=== PATIENT | female | born 1955 | race Caucasian/White ===

== ENCOUNTER 2017-01-12 07:00 | Inpatient (IN) | payer MEDICAID ==
[~2017-01-12] VITALS: Ht 157.5 cm; Wt 72.6 kg
[~2017-01-12 07:00] MED LIST: ATOR10TA PO; CYCL-259 PO; HYDR-3307 PO; LISI-167 PO; LOSA50TA6 PO
[2017-02-03] MEDS ORDERED: LEVO75TA5 PO (10:17)
[2017-02-03] MEDS ORDERED: ATOR20TA9 PO (10:17)
[2017-02-03] MEDS ORDERED: LOSA50TA6 PO (10:17)
[2017-02-03] MEDS ORDERED: RISP3TAB24 PO (10:17)
[2017-02-03] MEDS ORDERED: FLUT1AER INH (10:31)
[2017-02-03] MEDS ORDERED: ALBU18HF INH (10:31)
[2017-02-12] MEDS ORDERED: BACITRACIN 50,000 UNIT ONE (05:56)
[2017-02-12] MEDS ORDERED: BUPIVACAINE/PF-EPI 0.5% 1:200K ONE (05:56)
[2017-02-12] MEDS ORDERED: THROMBIN 5,000 UNIT VIAL TP ONE (05:56)
[2017-02-12] MEDS ORDERED: BUPIVACAINE 0.25% ONE (06:15)
[2017-02-12 06:16] VITALS: BP 118/83
[2017-02-12] MEDS ORDERED: LACTATED RINGERS 1,000 ML IV SCH (06:25)
[2017-02-12] MEDS ORDERED: LIDOCAINE 1%, 2ML ONE (06:27)
[2017-02-12] MEDS ORDERED: LIDOCAINE 1%, 2ML SQ PRN (06:30)
[2017-02-12] MEDS ORDERED: MIDAZOLAM 1 MG/ML, 2ML ONE (06:36)
[2017-02-12] MEDS ORDERED: FENTANYL PF 250 MCG/5ML ONE (06:36)
[2017-02-12] MEDS ORDERED: REMIFENTANIL 2 MG ONE (06:36)
[2017-02-12] MEDS ORDERED: SUCCINYLCHOLINE 20 MG/ML, 10ML ONE (07:14)
[2017-02-12] MEDS ORDERED: ROCURONIUM 10 MG/ML ONE (07:14)
[2017-02-12] MEDS ORDERED: CEFAZOLIN 1,000 MG ONE (07:14)
[2017-02-12] MEDS ORDERED: GLYCOPYRROLATE 0.2MG/1ML ONE (07:14)
[2017-02-12] MEDS ORDERED: PROPOFOL 10 MG/ML, 20ML ONE (07:14)
[2017-02-12] MEDS ORDERED: PROPOFOL 10 MG/ML, 50ML ONE (07:14)
[2017-02-12] MEDS ORDERED: ONDANSETRON 2MG/ML, 2ML ONE (07:14)
[2017-02-12] MEDS ORDERED: DEXAMETHASONE 4 MG/ML, 1ML ONE (07:14)
[2017-02-12] MEDS ORDERED: EPHEDRINE 50 MG/ML, 1ML ONE ×2 (07:14→10:40)
[2017-02-12] MEDS ORDERED: MEPERIDINE/PF 25MG/0.5ML IVPush PRN (08:30)
[2017-02-12] MEDS ORDERED: PROMETHAZINE 25 MG/ML, 1ML IV PRN (08:30)
[2017-02-12] MEDS ORDERED: LABETALOL 5MG/ML, 20ML IV PRN (08:30)
[2017-02-12] MEDS ORDERED: ONDANSETRON 2MG/ML, 2ML IVPush PRN (08:30)
[2017-02-12] MEDS ORDERED: METOPROLOL 1 MG/ML, 5ML IV PRN (08:30)
[2017-02-12] MEDS ORDERED: HYDROmorphone 1 MG/ML, 1ML IV PRN (08:30)
[2017-02-12] MEDS ORDERED: ACETAMINOPHEN 325 MG TABLET PO PRN (08:30)
[2017-02-12] MEDS ORDERED: OXYcodone 5 MG/5 ML ORAL.SOL UDC PO PRN (08:30)
[2017-02-12] MEDS ORDERED: MIDAZOLAM 1 MG/ML, 2ML IV PRN (08:30)
[2017-02-12] MEDS ORDERED: ALBUTEROL SULFATE 2.5 MG/3 ML NPPB PRN (08:30)
[2017-02-12] MEDS ORDERED: hydrALAzine 20 MG/ML, 1ML IV PRN (08:30)
[2017-02-12] MEDS ORDERED: FENTANYL PF 100 MCG/2ML ONE ×2 (09:46→11:13)
[2017-02-12] MEDS ORDERED: BUPIVACAINE 0.25% INJ ONE (10:07)
[2017-02-12] MEDS ORDERED: FENTANYL PF 100 MCG/2ML EPIDPUSH ONE (10:07)
[2017-02-12] MEDS ORDERED: PROMETHAZINE 25 MG/ML, 1ML IM PRN (10:30)
[2017-02-12] MEDS ORDERED: PHARMACY MAY ADJ FOR RENAL FX MC PRN (10:30)
[2017-02-12] MEDS ORDERED: METHOCARBAMOL 750 MG TABLET PO PRN (10:30)
[2017-02-12] MEDS ORDERED: CYCLOBENZAPRINE 10 MG TABLET PO PRN (10:30)
[2017-02-12] MEDS ORDERED: morphine SULFATE 10 MG/ML, 1ML IVPush PRN (10:30)
[2017-02-12] MEDS ORDERED: HYDROcodone/APAP 5/325 TABLET PO PRN (10:30)
[2017-02-12] MEDS ORDERED: BISACODYL 10 MG SUPP PR PRN (10:30)
[2017-02-12] MEDS ORDERED: SENNA/DOCUSATE TABLET PO PRN (10:30)
[2017-02-12] MEDS ORDERED: HYDROcodone/APAP 10/325 MG TABLET PO PRN (10:30)
[2017-02-12] MEDS ORDERED: DIPHENHYDRAMINE 50 MG/ML, 1ML IVPush PRN (10:30)
[2017-02-12] MEDS: EPHEDRINE 50 MG/ML, 1ML IVPush PRN ×2 (10:35→10:50)
[2017-02-12] MEDS ORDERED: ACETAMINOPHEN 650 MG/20.3 ML UDC ONE (11:13)
[2017-02-12] MEDS ORDERED: OXYcodone 5 MG/5 ML ORAL.SOL UDC ONE (11:14)
[2017-02-12] MEDS: FENTANYL PF 100 MCG/2ML IV PRN ×4 (11:16→11:56)
[2017-02-12 13:05] VITALS: BP 96/55
[2017-02-12] MEDS ORDERED: ALBUTEROL SULFATE 2.5 MG/3 ML HHN PRN (13:30)
[2017-02-12] MEDS: CEFAZOLIN PMX 1GM/50ML 50 ML IVPB SCH ×2 (14:00→22:27)
[2017-02-12] MEDS: D5%-0.9% NACL+KCL 20MEQ 1,000 ML IV SCH (14:38)
[2017-02-12] MEDS: ONDANSETRON 2MG/ML, 2ML IVPush PRN (16:44)
[2017-02-12] MEDS: OXYcodone/APAP 5/325MG TABLET PO PRN ×2 (16:44→20:50)
[2017-02-12 19:29] VITALS: BP 104/63
[2017-02-12] MEDS: ATORVASTATIN 20 MG TABLET PO SCH (20:38)
[2017-02-12] MEDS: RISPERIDONE 1 MG TABLET PO SCH (20:39)
[2017-02-12] MEDS: SODIUM CHLORIDE FLUSH 10ML SYR IVF SCH (20:40)
[2017-02-12 23:57] VITALS: BP 99/62
[2017-02-13] MEDS: D5%-0.9% NACL+KCL 20MEQ 1,000 ML IV SCH ×3 (00:21→17:29)
[2017-02-13] MEDS: OXYcodone/APAP 5/325MG TABLET PO PRN ×5 (01:01→20:24)
[2017-02-13 02:40] VITALS: BP 89/63
[2017-02-13 08:33] VITALS: BP 92/53
[2017-02-13] MEDS: FLUTICASONE/VILANTEROL 100-25MCG/INH INH SCH (09:00)
[2017-02-13] MEDS: RISPERIDONE 1 MG TABLET PO SCH ×2 (09:12→21:22)
[2017-02-13] MEDS: SODIUM CHLORIDE FLUSH 10ML SYR IVF SCH ×2 (09:12→21:00)
[2017-02-13] MEDS: LOSARTAN 50MG TABLET PO SCH (09:12)
[2017-02-13] MEDS: LEVOTHYROXINE 75 MCG TABLET PO SCH (09:12)
[2017-02-13 12:34] VITALS: BP 103/63
[2017-02-13] MEDS: ONDANSETRON 2MG/ML, 2ML IVPush PRN (17:31)
[2017-02-13 20:46] VITALS: BP 101/68
[2017-02-13] MEDS: ATORVASTATIN 20 MG TABLET PO SCH (21:21)
[2017-02-14] MEDS: OXYcodone/APAP 5/325MG TABLET PO PRN (01:08)
[2017-02-14] MEDS: ONDANSETRON 2MG/ML, 2ML IVPush PRN (01:13)
[2017-02-14 02:49] VITALS: BP 90/60
[2017-02-14] MEDS: D5%-0.9% NACL+KCL 20MEQ 1,000 ML IV SCH ×2 (03:05→17:06)
[2017-02-14 06:15] LABS: BLOOD UREA NITROGEN 16 mg/dL (7-18)
[2017-02-14 06:18] LABS: ASPARTATE AMINO TRANSFERASE 11 U/L (15-37)
[2017-02-14 06:59] VITALS: BP 99/53
[2017-02-14] MEDS: LOSARTAN 50MG TABLET PO SCH (08:32)
[2017-02-14] MEDS: FLUTICASONE/VILANTEROL 100-25MCG/INH INH SCH (08:32)
[2017-02-14] MEDS: LEVOTHYROXINE 75 MCG TABLET PO SCH (08:32)
[2017-02-14] MEDS: SODIUM CHLORIDE FLUSH 10ML SYR IVF SCH ×2 (08:32→21:00)
[2017-02-14] MEDS: RISPERIDONE 1 MG TABLET PO SCH ×2 (08:33→21:51)
[2017-02-14] MEDS ORDERED: ALBUTEROL SULFATE 2.5 MG/3 ML NPPB PRN (09:30)
[2017-02-14 13:21] VITALS: BP 103/74
[2017-02-14 20:14] VITALS: BP 129/69
[2017-02-14] MEDS: ATORVASTATIN 20 MG TABLET PO SCH (21:51)
[2017-02-15] MEDS: D5%-0.9% NACL+KCL 20MEQ 1,000 ML IV SCH ×2 (00:05→09:00)
[2017-02-15] MEDS: OXYcodone/APAP 5/325MG TABLET PO PRN ×4 (01:31→14:02)
[2017-02-15 04:40] VITALS: BP 126/66
[2017-02-15 09:00] VITALS: BP 121/73
[2017-02-15] MEDS: SODIUM CHLORIDE FLUSH 10ML SYR IVF SCH (09:00)
[2017-02-15] MEDS: FLUTICASONE/VILANTEROL 100-25MCG/INH INH SCH (09:00)
[2017-02-15] MEDS: LEVOTHYROXINE 75 MCG TABLET PO SCH (09:11)
[2017-02-15] MEDS: RISPERIDONE 1 MG TABLET PO SCH (09:12)
[2017-02-15] MEDS: LOSARTAN 50MG TABLET PO SCH (09:12)
[2017-02-15] MEDS ORDERED: OXYC-302 PO (11:35)
[2017-02-15] MEDS ORDERED: CYCL-259 PO (11:36)
[2017-02-15] MEDS ORDERED: DOCU-30 PO (11:42)
[2017-02-15 14:28] VITALS: BP 115/62
== END 2017-02-15 15:05 | DRG 460 ==
LOC: ORIP 02-12 05:26 → EDSTATUS 02-12 07:00 → 4NOR 02-12 12:45
PROVIDERS: ADMIT Neurological Surgery; ATTEND Neurological Surgery
PROC: 0SG0071 Fusion of Lumbar Vertebral Joint with Autologous Tissue Substitute, Posterior Approach, Posterior Column, Open Approach (ICD-10-PCS; 2017-02-12)
PROC: 0SB20ZZ Excision of Lumbar Vertebral Disc, Open Approach (ICD-10-PCS; 2017-02-12)
PROC: 01NB0ZZ Release Lumbar Nerve, Open Approach (ICD-10-PCS; 2017-02-12)
PROC: 4A11X4G Monitoring of Peripheral Nervous Electrical Activity, Intraoperative, External Approach (ICD-10-PCS; 2017-02-12)
PROC: 0SG00AJ Fusion of Lumbar Vertebral Joint with Interbody Fusion Device, Posterior Approach, Anterior Column, Open Approach (ICD-10-PCS; principal; 2017-02-12 07:00)
DX: M48.06 Spinal stenosis, lumbar region (principal); M43.16 Spondylolisthesis, lumbar region; M51.16 Intervertebral disc disorders with radiculopathy, lumbar region; G43.909 Migraine, unspecified, not intractable, without status migrainosus; F41.9 Anxiety disorder, unspecified; F32.9 Major depressive disorder, single episode, unspecified; G80.9 Cerebral palsy, unspecified; G89.29 Other chronic pain; E66.01 Morbid (severe) obesity due to excess calories; I10 Essential (primary) hypertension; J44.9 Chronic obstructive pulmonary disease, unspecified; E03.9 Hypothyroidism, unspecified; E11.9 Type 2 diabetes mellitus without complications; Z98.1 Arthrodesis status; Z68.29 Body mass index [BMI] 29.0-29.9, adult; Z82.0 Family history of epilepsy and other diseases of the nervous system; Z80.3 Family history of malignant neoplasm of breast; Z88.8 Allergy status to other drugs, medicaments and biological substances; Z79.899 Other long term (current) drug therapy
CPT/HCPCS: 36415; 72100; 80053; 85025; 86850; 86900; C1713; J0690; J1100; J2250; J2405; J2704; J3010; J3490; C1751; C1762; J0330; J3480; J7120

== ENCOUNTER → 2017-02-03 | Outpatient (CLI) | payer MEDICAID ==
[~2017-02-03] MED LIST changes: +ALBU18HF INH; +ATOR20TA9 PO; +FLUT1AER INH; +LEVO75TA5 PO; +RISP3TAB24 PO
[2017-02-03 11:13] LABS: HEMOGLOBIN 14.4 g/dL (11.7-16.4)
[2017-02-03 11:15] LABS: BLOOD UREA NITROGEN 12 mg/dL (7-18)
[2017-02-03 11:19] LABS: ASPARTATE AMINO TRANSFERASE 14 U/L (15-37)
[2017-02-03 12:55] LABS: PATH.CAST-FLAG NOT PRESENT; SPERM-FLAG NOT PRESENT; SRC-FLAG NOT PRESENT; XTAL-FLAG NOT PRESENT; YLC-FLAG NOT PRESENT
== END | disposition home or self-care (01) ==
LOC: STAR 09:33
PROVIDERS: ATTEND Neurological Surgery
DX: Z01.818 Encounter for other preprocedural examination (principal); M51.36 Other intervertebral disc degeneration, lumbar region; R79.1 Abnormal coagulation profile
CPT/HCPCS: 36415; 71020; 80053; 81001; 85025; 85610; 85730; 93005